=== PATIENT | female | born 1975 | race American Indian/Alaskan Native ===

== ENCOUNTER 2018-12-05 23:59 | Inpatient (IN) | payer OTHER ==
[2018-12-06] MEDS ORDERED: ASPIRIN PO ONE (00:14)
[2018-12-06 00:40] LABS: Basophils # (Auto) 0.1 K/mm3 (0.0-0.1); Basophils % (Auto) 0.8 % (0.0-1.8); Eosinophils # (Auto) 0.3 K/mm3 (0.0-0.4); Eosinophils % (Auto) 3.3 % (0.0-4.3); Hematocrit 37.1 % (30.3-42.9); Hemoglobin 13.1 gm/dl (10.1-14.3); Lymphocytes # (Auto) 4.4 K/mm3 (1.2-5.4); Lymphocytes % (Auto) 51.9 % (13.4-35.0); Mean Corpuscular HGB Conc 35 % (30-34); Mean Corpuscular Volume 87 fl (79-97); Monocytes # (Auto) 0.5 K/mm3 (0.0-0.8); Monocytes % (Auto) 6.1 % (0.0-7.3); Platelet Count 196 K/mm3 (140-440); Red Blood Count 4.26 M/mm3 (3.65-5.03); Red Cell Distribution Width 13.8 % (13.2-15.2)
--- NOTE | 2018-12-06 00:53 | XRay Report ---
PROCEDURE: XR CHEST 1V AP TECHNIQUE: Chest radiograph single view. HISTORY: Chest Pain COMPARISONS: None . FINDINGS: Heart: The heart is mildly enlarged.. Mediastinum/Vessels: Normal. Lungs/Pleural space: There are no localized infiltrates or effusions.. Bony thorax: No acute osseous abnormality. Life support devices: None. IMPRESSION: No acute cardiopulmonary abnormality. This document is electronically signed by Nas Warren MD., December 06 2018 12:52:17 AM ET
[2018-12-06 00:54] LABS: BUN/Creatinine Ratio 19; Blood Urea Nitrogen 15 mg/dL (7-17); Calcium 9.7 mg/dL (8.4-10.2); Hemolysis Index 12
[2018-12-06] MEDS ORDERED: K-DUR PO ONE (02:17)
[2018-12-06] MEDS ORDERED: NORCO 5/325 PO ONE (02:35)
[2018-12-06] MEDS ORDERED: ANTIVERT PO ONE (02:35)
[2018-12-06] MEDS ORDERED: ASPIRIN ONE (03:05)
--- NOTE | 2018-12-06 03:39 | Emergency Department Report ---
HPI - General Chief Complaint: Dizziness Time Seen by Provider: 12/06/18 02:15 - HPI HPI: 43-year-old -Cam[place] female presents to the emergency department from home, dropped off by her , with a complaint of some dizziness, generalized body aches and generalized weakness. The patient also complains of a headache that goes from the back of the head and down into the chest. This has been going on for the past few days. She has a past medical history of hypertension and high cholesterol. She denies any tobacco or illicit drug use. Patient did take her normal blood pressure medications as well as a tramadol that she had available but says that she did not get much relief. She also has some associated nausea without vomiting. The body aches feel like vibrations throughout her body. The dizziness feels like she may fall down or pass out. Patient recently was on a cruise to the [facility]. Her primary care physician is a Dr. Reardon. ED Past Medical Hx - Past Medical History Previous Medical History?: Yes Hx Hypertension: Yes Additional medical history: High cholestrol - Surgical History Past Surgical History?: No - Social History Smoking Status: Never Smoker Substance Use Type: Alcohol - Medications Home Medications: Home Medications Medication Instructions Recorded Confirmed Last Taken Type Lisinopril/Hydrochlorothiazide 1 tab PO QDAY 12/06/18 12/06/18 12/05/18 History [Zestoretic 20-12.5 mg] Simvastatin 20 mg PO HS 12/06/18 12/06/18 12/05/18 History traMADol [Ultram] 50 mg PO BID PRN 12/06/18 12/06/18 12/05/18 History ED Review of Systems ROS: Stated complaint: DIZZY W/HEADACHE Other details as noted in HPI Comment: All other systems reviewed and negative Constitutional: weakness. denies: fever Eyes: denies: eye pain, vision change ENT: denies: ear pain, throat pain Respiratory: denies: cough, shortness of breath Cardiovascular: denies: chest pain, palpitations Gastrointestinal: nausea. denies: abdominal pain, vomiting Genitourinary: denies: dysuria, discharge Musculoskeletal: myalgia. denies: joint swelling Skin: denies: rash, lesions Neurological: other (dizziness). denies: numbness, paresthesias Physical Exam - Physical Exam Vital Signs: Vital Signs 12/06/18 00:06 Temperature 97.6 F Pulse Rate 89 Respiratory 18 Rate Blood Pressure 194/126 O2 Sat by Pulse 100 Oximetry Physical Exam: GENERAL: The patient is well-developed well-nourished. HENT: Normocephalic. Atraumatic. Patient has moist mucous membranes. EYES: Extraocular motions are intact. Pupils equal reactive to light bilaterally. Fatigable horizontal nystagmus. NECK: Supple. Trachea is midline. CHEST/LUNGS: Clear to auscultation. There is no respiratory distress noted. HEART/CARDIOVASCULAR: Regular. There is no tachycardia. There is no murmur. ABDOMEN: Abdomen is soft, nontender. Patient has normal bowel sounds. There is no abdominal distention. SKIN: Skin is warm and dry. NEURO: The patient is awake, alert, and oriented. The patient is cooperative. The patient has no focal neurologic deficits. The patient has normal speech. Cranial nerves II through XII grossly intact. No pronator drift. No dysmetria. No facial asymmetry. MUSCULOSKELETAL: There is no tenderness or deformity. There is no limitation range of motion. There is no evidence of acute injury. ED Course Vital Signs 12/06/18 00:06 Temperature 97.6 F Pulse Rate 89 Respiratory 18 Rate Blood Pressure 194/126 O2 Sat by Pulse 100 Oximetry ED Medical Decision Making - Lab Data Result diagrams: 12/06/18 00:22 12/06/18 00:22 - EKG Data -: EKG Interpreted by Ak EKG shows normal: sinus rhythm (PVCs), axis, intervals (prolonged FL interval), QRS complexes (LVH), ST-T waves Rate: normal - EKG Data When compared to previous EKG there are: previous EKG unavailable Interpretation: other (sinus rhythm with PVCs, mildly prolonged FL interval, LVH) - Radiology Data Radiology results: report reviewed, image reviewed interpreted by me: Chest x-ray does not show any acute process. There are no pleural effusions, obvious pneumonia and there is no pneumothorax. PROCEDURE: CT HEAD/BRAIN WO CON TECHNIQUE: Computerized tomography of the head was performed without contrast material. CT DOSE LENGTH PRODUCT: 920.5 mGycm HISTORY: dizziness, headache COMPARISONS: None . FINDINGS: Skull and scalp: Normal . Paranasal sinuses: Normal . Ventricles and subarachnoid spaces: Normal . Cerebrum: No evidence of hemorrhage, acute infarction or mass . Cerebellum and brainstem: No evidence of hemorrhage, acute infarction or mass . Vasculature: Normal . Other: None . ASPECTS: 10 IMPRESSION: Within normal limits. . This document is electronically signed by Nas Warren MD., December 06 2018 06:08:29 AM ET Transcribed By: SHAMAR Dictated By: NAS WARREN MD Electronically Authenticated By: NAS WARREN MD Signed Date/Time: 12/06/18 0610 PROCEDURE: CT ANGIO CHEST TECHNIQUE: Computerized tomographic angiography of the chest was performed after the IV injection of iodinated nonionic contrast including image processing. The image data was postprocessed using 2-dimensional multiplanar reformatted (MPR) and 3-dimensional (MIP and/or volume rendered) techniques. Automated exposure control, adjustment of mA and/or kV according to patient size, or iterative reconstruction dose optimization techniques were utilized. CT DOSE LENGTH PRODUCT: 684.7 mGycm HISTORY: CP, elevated dimer COMPARISONS: Chest x-ray 12/06/2018 . FINDINGS: Heart and pericardium: The heart is mildly enlarged. There is no evidence of pericardial effusion.. Thoracic aorta: Normal. Pulmonary vasculature: Normal. Lymph nodes: No enlarged thoracic lymph nodes. Lungs: The lungs reveal very mild interstitial prominence in the bases. There are no localized infiltrates.. Pleural space: No effusion, thickening, or pneumothorax. Musculoskeletal structures: No significant abnormality. Upper abdominal structures: No significant abnormality. IMPRESSION: No evidence of pulmonary embolus, aortic dissection, or vascular congestion. Nonspecific mild initial prominence in the lower lobes. No acute infiltrates or effusions. This document is electronically signed by Nas Warren MD., December 06 2018 06:18:34 AM ET Transcribed By: SHAMAR Dictated By: NAS WARREN MD Electronically Authenticated By: NAS WARREN MD Signed Date/Time: 12/06/18 0620 - Medical Decision Making This patient presents to the emergency department with a complaint of a headache, some chest discomfort, and some dizziness/vertigo. It is a mixture of feeling like she is going to pass out, along with the room spinning. On examination she does not appear to have any motor, focal or sensory deficits in her cranial nerves are intact. She does have some fatigable horizontal nystagmus. She was given some Antivert and a dose of pain medication. Chest x- ray did not show any acute process. CT scan of the head without contrast did not show any bleed, shift, mass, ischemia, or any other acute process. CT angiography of the chest did not show any signs of any pulmonary embolism, dissection, aneurysm, or any other acute process. Patient's labs showed a slightly elevated d-dimer, mild hypokalemia but otherwise she had negative troponins 2 thus far and normal thyroid function. The patient attempted to ambulate the patient but she continues to feel dizzy and have vertigo and does not feel stable ambulating. As the patient just had a CT angiography of the chest, we may not be able to obtain CT angiography of the head and neck to rule out something like a posterior circulation stroke. For all these reasons, the patient will be admitted to the hospital for further evaluation and treatment. This admission was discussed with the overnight hospitalist who will pass along to the morning hospitalist team. - Differential Diagnosis benign positional vertigo, posterior circulation stroke, PE, DE Critical Care Time: No Critical care attestation.: If time is entered above; I have spent that time in minutes in the direct care of this critically ill patient, excluding procedure time. ED Disposition Clinical Impression: Acute chest pain, Vertigo, Dizziness, Hypokalemia Hypertension Qualifiers: Hypertension type: essential hypertension Qualified Code(s): I10 - Essential (primary) hypertension Disposition: OP ADMIT IP TO THIS HOSP Is pt being admited?: Yes Condition: Fair Time of Disposition: 06:36
--- NOTE | 2018-12-06 06:10 | Cat Scan Report ---
PROCEDURE: CT HEAD/BRAIN WO CON TECHNIQUE: Computerized tomography of the head was performed without contrast material. CT DOSE LENGTH PRODUCT: 920.5 mGycm HISTORY: dizziness, headache COMPARISONS: None . FINDINGS: Skull and scalp: Normal . Paranasal sinuses: Normal . Ventricles and subarachnoid spaces: Normal . Cerebrum: No evidence of hemorrhage, acute infarction or mass . Cerebellum and brainstem: No evidence of hemorrhage, acute infarction or mass . Vasculature: Normal . Other: None . ASPECTS: 10 IMPRESSION: Within normal limits. . This document is electronically signed by Nas Warren MD., December 06 2018 06:08:29 AM ET
--- NOTE | 2018-12-06 06:20 | Cat Scan Report ---
PROCEDURE: CT ANGIO CHEST TECHNIQUE: Computerized tomographic angiography of the chest was performed after the IV injection of iodinated nonionic contrast including image processing. The image data was postprocessed using 2-di mensional multiplanar reformatted (MPR) and 3-dimensional (MIP and/or volume rendered) techniques. Au tomated exposure control, adjustment of mA and/or kV according to patient size, or iterative reconstr uction dose optimization techniques were utilized. CT DOSE LENGTH PRODUCT: 684.7 mGycm HISTORY: CP, elevated dimer COMPARISONS: Chest x-ray 12/06/2018 . FINDINGS: Heart and pericardium: The heart is mildly enlarged. There is no evidence of pericardial effusion.. Thoracic aorta: Normal. Pulmonary vasculature: Normal. Lymph nodes: No enlarged thoracic lymph nodes. Lungs: The lungs reveal very mild interstitial prominence in the bases. There are no localized infil trates.. Pleural space: No effusion, thickening, or pneumothorax. Musculoskeletal structures: No significant abnormality. Upper abdominal structures: No significant abnormality. IMPRESSION: No evidence of pulmonary embolus, aortic dissection, or vascular congestion. Nonspecific mild initial prominence in the lower lobes. No acute infiltrates or effusions. This document is electronically signed by Nas Warren MD., December 06 2018 06:18:34 AM ET
--- NOTE | 2018-12-06 08:13 | History and Physical Report ---
History of Present Illness Date of examination: 12/06/18 Date of admission: 12/06/18 Chief complaint: Dizziness History of present illness: 43-year-old -[place]enegr[place] female with h/o HTN and HLD presents to the emergency department from home, dropped off by her , with a complaint of some dizziness, generalized body aches and generalized weakness along with a headache with some associated nausea without vomiting. Patient states that she recently came from a cruise trip to [place] and no other family members are sick at this point. She describes her headcahe that goes from the back of the head and down into the chest. This has been going on for the past few days. She denies any tobacco or illicit drug use. Patient did take her normal blood pressure medications as well as a tramadol that she had available but says that she did not get much relief. The body aches feel like vibrations throughout her body. The dizziness feels like she may fall down or pass out and happens with changing position. Her primary care physician is a Dr. Reardon. Her CTA chest showed no PE, CT head unremarkable. Pt also reports some intermittent chest pain for the past several months. She describes the pain as a midsternal burning which occurs intermittently and which is usually resolved by drinking cold water. She denies any SOB, palpitations, diaphoresis or syncope. Pt denies any known cardiac issues or prior cardiac w/u. 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 She is getting admitted for further evaluation and management. Review of System: Constitutional: no fever, no chills, no weight loss Ears, eyes, nose, mouth and throat: no nasal congestion, no nasal discharge, no sinus pressure, no vision change, no red eye. Neck: No neck pain or rigidity. Cardiovascular: + intermittent chest pain, no orthopnea, no palpitations, no leg swelling Respiratory: No shortness of breath, no cough, no congestion, no wheezing Gastrointestinal: no abdominal pain, no nausea, no vomiting Genitourinary : no dysuria, no hematuria Musculoskeletal: no joint swelling or muscle ache Integumentary: no rash, no pruritis Neurological: no parathesias, no numbness, no tingling. + dizziness Endocrine: no cold or heat intolerance, no polyuria or polydipsia Hematologic/Lymphatic: no easy bruising, no easy bleeding, no gland swelling Allergic/Immunologic: no urticaria, no angioedema. Past History Past Medical History: hypertension, hyperlipidemia Past Surgical History: No surgical history Social history: no significant social history. denies: smoking, alcohol abuse, IV drug use Family history: CAD (in mother), diabetes (in mother) Medications and Allergies Allergies Allergy/AdvReac Type Severity Reaction Status Date / Time No Known Allergies Allergy Verified 12/06/18 00:12 Home Medications Medication Instructions Recorded Confirmed Last Taken Type Lisinopril/Hydrochlorothiazide 1 tab PO QDAY 12/06/18 12/06/18 12/05/18 History [Zestoretic 20-12.5 mg] Simvastatin 20 mg PO HS 12/06/18 12/06/18 12/05/18 History traMADol [Ultram] 50 mg PO BID PRN 12/06/18 12/06/18 12/05/18 History Exam - Physical Exam Narrative exam: GENERAL: well-developed and obese AAF lying on bed appeared to be in no discomfort. HEENT: Normocephalic. Atraumatic. No conjunctival congestion or icterus. Patient has moist mucous membranes. NECK: Supple. Trachea midline. CHEST/LUNGS: Clear to auscultated bilaterally, breathing nonlabored. No wheezes crackles or rhonchi. HEART/CARDIOVASCULAR: Regular in rate and rhythm. S1 and S2 positive. ABDOMEN: Abdomen is soft, nontender. Patient has normal bowel sounds. SKIN: There is no rash. Warm and dry. NEURO: No focal motor deficit. Follows command. MUSCULOSKELETAL: No joint effusion or tenderness. EXTRIMITY: No edema, no cyanosis or clubbing. PSYCH: Cooperative. - Constitutional Vitals: Temp Pulse Resp BP Pulse Ox 98.1 F 83 16 142/84 100 12/06/18 02:11 12/06/18 04:45 12/06/18 04:45 12/06/18 06:01 12/06/18 06:01 Results - Labs CBC & Chem 7: 12/06/18 00:22 12/08/18 09:57 Labs: Abnormal lab results 12/06/18 12/06/18 12/06/18 Range/Units 00:22 00:22 02:53 MCHC 35 H (30-34) % Lymph % (Auto) 51.9 H (13.4-35.0) % Seg Neutrophils % 37.9 L (40.0-70.0) % D-Dimer 314.64 H (0-234) ng/mlDDU Potassium 3.2 L (3.6-5.0) mmol/L Glucose 107 H (65-100) mg/dL Assessment and Plan Dizziness vs vertigo/BPV headache, possible migraine Atypical chest pain, likely GERD HTN, uncontrolled Obesity, due to access calorie hypokalemia - admit to [facility] with remote tele, obtain 2d echo - obtain MRA/MRV for possible cerebral venous thrombosis, neuro consult - replete K, resume home meds for HTN, as needed hydralazine - Dvt Px, PPI for GI Px, cardiac diet
[2018-12-06] MEDS ORDERED: APRESOLINE IV PRN (08:14)
[2018-12-06] MEDS ORDERED: TYLENOL PO PRN (08:14)
[2018-12-06] MEDS ORDERED: ZOFRAN IV PRN (08:14)
[2018-12-06] MEDS ORDERED: ANTIVERT PO PRN (08:15)
[2018-12-06] MEDS ORDERED: FIORICET PO PRN (08:15)
[2018-12-06] MEDS: PEPCID PO SCH ×2 (09:32→21:28)
[2018-12-06] MEDS: COLACE PO SCH ×2 (10:29→21:28)
[2018-12-06 12:46] LABS: Amphetamine Screen,Urine PRESUMPTIVE NEGATIVE; Benzodiazepines Screen,Urine PRESUMPTIVE NEGATIVE; Cannabinoid Screen,Urine PRESUMPTIVE NEGATIVE; Cocaine Screen,Urine PRESUMPTIVE NEGATIVE; Methadone Screen,Urine PRESUMPTIVE NEGATIVE; Opiate Screen,Urine PRESUMPTIVE NEGATIVE
[2018-12-06] MEDS ORDERED: ANTIVERT ONE (17:10)
[2018-12-06] MEDS: PRAVACHOL PO SCH (21:28)
[2018-12-06] MEDS ORDERED: NON-FORMULARY (Simvastatin [Simvastatin] 20 MG) PO SCH (22:00)
[2018-12-07] MEDS ORDERED: NON-FORMULARY (Lisinopril/Hydrochlorothiazide [Zestoretic 20-12.5 Mg] 1 TAB) PO SCH (10:00)
[2018-12-07] MEDS ORDERED: HCTZ PO SCH (10:00)
[2018-12-07] MEDS: ZESTRIL PO SCH (13:29)
[2018-12-07] MEDS: PEPCID PO SCH ×2 (13:29→22:25)
[2018-12-07] MEDS: COLACE PO SCH ×2 (13:30→22:25)
--- NOTE | 2018-12-07 13:37 | Consultation ---
History of Present Illness Consult date: 12/07/18 Requesting physician: CONNER LOVE Consult reason: other (dizziness) History of present illness: The pt is a 43-year-old -[place] female with a past medical history of HTN and HLP. She is previously unknown to our practice. She presented with c/o dizziness, headache, generalized body aches and generalized weakness for the past few days. She also has some associated nausea without vomiting. The body aches feel like vibrations throughout her body. The dizziness feels like she may fall down or pass out. Patient recently was on a cruise to the [facility]. Her primary care physician is a Dr. Reardon. Pt also reports some intermittent chest pain for the past several months. She describes the pain as a midsternal burning which occurs intermittently and which is usually resolved by drinking cold water. She denies any SOB, palpitations, diaphoresis or syncope. Pt denies any known cardiac issues or prior cardiac w/u. 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 Past History Past Medical History: hypertension, hyperlipidemia Medications and Allergies Allergies Allergy/AdvReac Type Severity Reaction Status Date / Time No Known Allergies Allergy Verified 12/06/18 00:12 Home Medications Medication Instructions Recorded Confirmed Last Taken Type Lisinopril/Hydrochlorothiazide 1 tab PO QDAY 12/06/18 12/06/18 12/05/18 History [Zestoretic 20-12.5 mg] Simvastatin 20 mg PO HS 12/06/18 12/06/18 12/05/18 History traMADol [Ultram] 50 mg PO BID PRN 12/06/18 12/06/18 12/05/18 History Active Meds: Active Medications Acetaminophen (Tylenol) 650 mg PO Q4H PRN PRN Reason: Pain MILD(1-3)/Fever >100.5/SANDHU Acetaminophen/Butalbital/Caffeine (Fioricet) 1 tab PO Q8H PRN PRN Reason: Headache Docusate Sodium (Colace) 100 mg PO BID [facility] Last Admin: 12/07/18 13:30 Dose: 100 mg Documented by: Enoxaparin Sodium (Lovenox) 40 mg SUB-Q QDAY@2200 NITESH Famotidine (Pepcid) 10 mg PO BID [facility] Last Admin: 12/07/18 13:29 Dose: 10 mg Documented by: Hydralazine HCl (Apresoline) 5 mg IV Q30MIN PRN PRN Reason: Hypertension Hydrochlorothiazide (Hctz) 12.5 mg PO QDAY [facility] Last Admin: 12/07/18 13:30 Dose: 12.5 mg Documented by: Lisinopril (Zestril) 10 mg PO QDAY [facility] Last Admin: 12/07/18 13:29 Dose: 10 mg Documented by: Meclizine HCl (Antivert) 25 mg PO Q8H PRN PRN Reason: Vertigo Ondansetron HCl (Zofran) 4 mg IV Q8H PRN PRN Reason: N/V unrelieved by Reglan Pravastatin Sodium (Pravachol) 40 mg PO QHS [facility] Last Admin: 12/06/18 21:28 Dose: 40 mg Documented by: Review of Systems Constitutional: no weight loss, no weight gain, no fever, no chills, no sweats Ears, nose, mouth and throat: no ear pain, no nose pain, no sinus pressure, no sinus pain Cardiovascular: chest pain, lightheadedness, high blood pressure, no orthopnea, no palpitations, no rapid/irregular heart beat, no edema, no syncope, no shortness of breath, no dyspnea on exertion, no leg edema Respiratory: no cough, no shortness of breath, no dyspnea on exertion, no congestion, no wheezing, no pain on inspiration Gastrointestinal: no abdominal pain, no nausea, no vomiting, no diarrhea, no constipation, no change in bowel habits Genitourinary Female: no pelvic pain, no flank pain, no dysuria, no urinary frequency, no urgency Musculoskeletal: no shooting arm pain, no arm numbness/tingling, no low back pain, no shooting leg pain Integumentary: no rash, no pruritis, no redness, no sores, no wounds Neurological: headaches, other (dizziness), no head injury, no paralysis, no weakness, no parathesias, no numbness, no tingling, no seizures, no syncope Psychiatric: no anxiety Endocrine: no cold intolerance, no heat intolerance Hematologic/Lymphatic: no easy bruising, no easy bleeding Allergic/Immunologic: no urticaria, no wheezing Physical Examination Vital Signs Temp Pulse Resp BP Pulse Ox 97.6 F 89 18 194/126 100 12/06/18 00:06 12/06/18 00:06 12/06/18 00:06 12/06/18 00:06 12/06/18 00:06 General appearance: no acute distress HEENT: Positive: PERRL, Normocephaly, Mucus Membranes Moist Neck: Positive: neck supple, trachea midline Cardiac: Positive: Reg Rate and Rhythm, S1/S2 Lungs: Positive: Decreased Breath Sounds Neuro: Positive: Grossly Intact Abdomen: Positive: Soft. Negative: Tender Skin: Negative: Rash Musculoskeletal: No Pain Extremities: Absent: edema Results 12/06/18 00:22 12/06/18 00:22 - Imaging and Cardiology Echo: pending EKG: report reviewed, image reviewed EKG interpretations - Telemetry EKG Rhythm: Sinus Rhythm - EKG Sinus rhythms and dysrhythmias: sinus rhythm Chamber hypertrophy or enlargement: left ventricular hypertro Assessment and Plan DDimer minimally elevated - chest CTA negative for PE. Head CT WNL. AMI ruled out. Await echo. Agree with remote telemetry. Optimize BPs. Can consider stress test once BPs are optimized. The patient has been seen in conjunction with Dr. Caballero who agrees with the assessment and plan of care. - Patient Problems (1) Dizziness Current Visit: Yes Status: Acute (2) Headache Current Visit: Yes Status: Acute (3) Chest pain Current Visit: Yes Status: Acute (4) Accelerated hypertension Current Visit: Yes Status: Acute (5) Hyperlipemia Current Visit: Yes Status: Chronic
--- NOTE | 2018-12-07 14:40 | Magnetic Resonance Report ---
MRA HEAD WITHOUT CONTRAST: 12/07/18 10:28:00 CLINICAL: Headache. TECHNIQUE: Axial 3-D [id number] MR angiography of the [place] with review of axial source images. FINDINGS: Intact [place] with no aneurysm, stenosis or occlusion. The right A1 segment is hypoplastic which is a normal variant. Symmetric blood flow in the anterior, middle and posterior cerebral arteries. The anterior and posterior communicating arteries are patent. The ICAs are intact. Normal basilar and vertebral arteries. IMPRESSION: Normal study.
--- NOTE | 2018-12-07 14:57 | Magnetic Resonance Report ---
MRA NECK WITHOUT CONTRAST: 12/07/18 10:47:00 CLINICAL: Headache. COMPARISON:None. TECHNIQUE: Axial 3-D [id number] MR angiography with review of axial source images on a 1.5 Zainab magnet. FINDINGS: The bilateral common and internal carotid arteries are intact. Bilateral vertebral arteries are intact. No stenoses or occlusions. IMPRESSION: Normal study.
--- NOTE | 2018-12-07 15:19 | Progress Note ---
Assessment and Plan Dizziness vs vertigo/BPV - CT head unremarkable, pending 2d echo - Ordered MRA/MRV for possible Cerebral venous thrombosis - MRV was not ob tained, MRA normal, - Neuro consulted and placed on meclizine, - also given a dose of decadron, - ordered PT for [place]-Hallpike maneuver - also consulted cardiology for further recommendation Headache, possible migraine - ordered Depacon for migraine and magnesium sulfate x1 dose . Atypical chest pain, likely GERD - cont protonix, follow 2d echo - cardiology consulted HTN, uncontrolled - now on lisinopril, and added BB Obesity, due to access calorie, dietary and exercise recommendation on discharge hypokalemia, replete, stopped Hctz - Dvt Px, PPI for GI Px, cardiac diet Subjective Date of service: 12/07/18 Interval history: Patient seen and examined Continue to c/o Dizziness and vertigo MRA done - no acute findings 2d echo pending, denies chest pain, tolerating diet Objective - Exam Narrative Exam: GENERAL: well-developed and obese AAF lying on bed appeared to be in no discomfort. HEENT: Normocephalic. Atraumatic. No conjunctival congestion or icterus. Patient has moist mucous membranes. NECK: Supple. Trachea midline. CHEST/LUNGS: Clear to auscultated bilaterally, breathing nonlabored. No wheezes crackles or rhonchi. HEART/CARDIOVASCULAR: Regular in rate and rhythm. S1 and S2 positive. ABDOMEN: Abdomen is soft, nontender. Patient has normal bowel sounds. SKIN: There is no rash. Warm and dry. NEURO: No focal motor deficit. Follows command. MUSCULOSKELETAL: No joint effusion or tenderness. EXTRIMITY: No edema, no cyanosis or clubbing. PSYCH: Cooperative. - Constitutional Vitals: Vital Signs - 12hr 12/07/18 12/07/18 12/07/18 05:53 05:54 05:55 Temperature 98.2 F Pulse Rate 88 80 75 Respiratory 20 20 Rate Blood Pressure 143/87 140/92 138/97 O2 Sat by Pulse 100 100 100 Oximetry 12/07/18 13:29 Temperature Pulse Rate 82 Respiratory Rate Blood Pressure 151/101 O2 Sat by Pulse Oximetry - Labs CBC & Chem 7: 12/06/18 00:22 12/08/18 09:57
[2018-12-07] MEDS ORDERED: DECADRON IV ONE (16:45)
[2018-12-07] MEDS ORDERED: APRESOLINE IV STA (16:47)
[2018-12-07] MEDS ORDERED: DepaCON 1,000 MG in NACL 0.9% 100 ML IV ONE (17:30)
[2018-12-07] MEDS ORDERED: MAGNESIUM SULFATE 2GM/50ML 2 GM/50 ML BAG IV ONE (17:30)
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
[2018-12-07] MEDS: PRAVACHOL PO SCH (22:25)
[2018-12-07] MEDS: LOPRESSOR PO SCH (22:27)
[2018-12-07] MEDS: LOVENOX SUB-Q SCH (22:27)
[2018-12-08] MEDS: ANTIVERT PO SCH ×2 (11:22→22:31)
[2018-12-08] MEDS: LOPRESSOR PO SCH ×2 (11:23→22:31)
[2018-12-08] MEDS: BABY ASPIRIN PO SCH (11:23)
[2018-12-08] MEDS: ZESTRIL PO SCH (11:23)
[2018-12-08] MEDS: PEPCID PO SCH ×2 (11:24→22:31)
[2018-12-08] MEDS: COLACE PO SCH ×2 (11:24→22:30)
[2018-12-08 11:43] LABS: BUN/Creatinine Ratio 24; Blood Urea Nitrogen 19 mg/dL (7-17); Calcium 9.5 mg/dL (8.4-10.2); Hemolysis Index 5
--- NOTE | 2018-12-08 15:21 | Progress Note ---
Assessment and Plan Dizziness vs vertigo/BPV - CT head unremarkable, 2d echo showed Ef 40-45% - Ordered MRA/MRV for possible Cerebral venous thrombosis - MRV was not obtained, MRA normal, - reordered MRV today along with MRI brain due to her persisted complaints - Neuro consulted and placed on meclizine as needed - make with scheduled today , - also given a dose of decadron, - ordered PT for [place]-Hallpike maneuver - pending New diagnosis of CHFrEF 40-45%, compensated, - cardiology following, cont aspirin, statin and BB - possible cardiac workup outpt when she is neurologically more stable Headache, possible migraine - s/p magnesium sulfate x1 dose - ordered Depacon for migraine Atypical chest pain, likely GERD - cont protonix, 2d echo showed systolic dysfunction - cardiology consulted, may need stress HTN, uncontrolled - now on lisinopril, and added BB Obesity, due to access calorie, dietary and exercise recommendation on discharge hypokalemia, replete, stopped Hctz - Dvt Px, PPI for GI Px, cardiac diet Subjective Date of service: 12/08/18 Interval history: Patient seen and examined Continue to c/o Dizziness and vertigo, states unable to get out from bed MRV pending - no acute findings denies chest pain, tolerating diet Objective - Exam Narrative Exam: GENERAL: well-developed and obese AAF lying on bed appeared to be in no discomfort. HEENT: Normocephalic. Atraumatic. No conjunctival congestion or icterus. Patient has moist mucous membranes. NECK: Supple. Trachea midline. CHEST/LUNGS: Clear to auscultated bilaterally, breathing nonlabored. No wheezes crackles or rhonchi. HEART/CARDIOVASCULAR: Regular in rate and rhythm. S1 and S2 positive. ABDOMEN: Abdomen is soft, nontender. Patient has normal bowel sounds. SKIN: There is no rash. Warm and dry. NEURO: No focal motor deficit. Follows command. MUSCULOSKELETAL: No joint effusion or tenderness. EXTRIMITY: No edema, no cyanosis or clubbing. PSYCH: Cooperative. - Constitutional Vitals: Vital Signs - 12hr 12/08/18 12/08/18 12/08/18 05:20 08:00 09:48 Temperature 98.2 F 97.8 F Pulse Rate 96 H 90 Respiratory 18 18 20 Rate Blood Pressure 125/69 141/86 Blood Pressure [Left] O2 Sat by Pulse 97 100 Oximetry 12/08/18 12/08/18 09:50 09:57 Temperature 97.8 F Pulse Rate 98 H 93 H Respiratory 20 Rate Blood Pressure 144/98 Blood Pressure 135/94 [Left] O2 Sat by Pulse 100 99 Oximetry - Labs CBC & Chem 7: 12/06/18 00:22 12/08/18 09:57 Labs: Abnormal lab results 12/08/18 Range/Units 09:57 Carbon Dioxide 19 L (22-30) mmol/L BUN 19 H (7-17) mg/dL Glucose 171 H (65-100) mg/dL
[2018-12-08] MEDS ORDERED: PROVENTIL IH ONE (15:41)
--- NOTE | 2018-12-08 15:44 | Progress Note ---
Assessment and Plan The patient has been seen in conjunction with Dr. Mckeon who agrees with the assessment and plan of care. - Patient Problems (1) Dizziness Current Visit: Yes Status: Acute (2) Headache Current Visit: Yes Status: Acute (3) Chest pain Current Visit: Yes Status: Acute (4) Accelerated hypertension Current Visit: Yes Status: Acute (5) Hyperlipemia Current Visit: Yes Status: Chronic Subjective Date of service: 12/08/18 Principal diagnosis: dizziness; headache Objective Vital Signs Temp Pulse Pulse Resp BP BP Pulse Ox 12/08/18 09:57 97.8 F 93 H 135/94 99 12/08/18 09:50 98 H 20 144/98 100 12/08/18 09:48 97.8 F 90 20 141/86 100 12/08/18 08:00 18 12/08/18 05:20 98.2 F 96 H 18 125/69 97 12/07/18 23:41 98.6 F 98 H 20 142/92 97 12/07/18 22:27 98 H 142/119 12/07/18 20:00 98 H 20 97 12/07/18 18:38 93 H 130/82 12/07/18 17:01 97.7 F 93 H 20 130/82 97 - Physical Examination HEENT: Positive: PERRL, Normocephaly, Mucus Membranes Moist Neck: Positive: neck supple, trachea midline Neuro: Positive: Grossly Intact Abdomen: Positive: Soft. Negative: Tender Skin: Negative: Rash Musculoskeletal: No Pain Extremities: Absent: edema - Labs and Meds Comprehensive Metabolic Panel 12/08/18 Range/Units 09:57 Sodium 143 (137-145) mmol/L Potassium 3.8 (3.6-5.0) mmol/L Chloride 105.8 (98-107) mmol/L Carbon Dioxide 19 L (22-30) mmol/L BUN 19 H (7-17) mg/dL Creatinine 0.8 (0.7-1.2) mg/dL Glucose 171 H (65-100) mg/dL Calcium 9.5 (8.4-10.2) mg/dL - Imaging and Cardiology EKG: report reviewed, image reviewed Echo: pending - EKG Sinus rhythms and dysrhythmias: sinus rhythm Chamber hypertrophy or enlargement: left ventricular hypertro
--- NOTE | 2018-12-08 19:57 | Magnetic Resonance Report ---
PROCEDURE: MR BRAIN WO/W CON TECHNIQUE: Magnetic resonance imaging of the brain was performed before and after the IV injection o f paramagnetic contrast. HISTORY: headache/dizziness COMPARISONS: CT scan of the brain 12/06/2018 . FINDINGS: MRI of the brain was performed using sagittal T1, axial diffusion, axial T2, axial T2*gradient echo, axial T1, coronal FLAIR and axial and coronal postcontrast T1-weighted images. Additionally, thin sec tion imaging was performed through the internal auditory canals using coronal T2*gradient echo images and axial and coronal thin section precontrast and postcontrast T1-weighted images. Comparison is ma de to CT examination of December 06. These images demonstrate that there is a complete corpus callosum. There is no Chiari malformation. Diffusion-weighted images demonstrate no acute transcortical or acute lacunar infarct. There are scattered foci of increased FLAIR signal in the subcortical white matter, likely chronic sm all vessel ischemic change. Largest such focus is in the right anterior parietal white matter, FLAIR image 8 approximately 0.8 cm. There are normal flow voids in the vertebral arteries, basilar artery and both internal carotid arter ies. There is partial opacification of the right mastoid air cells. The left mastoid air cells appear troy r. There is no evidence of acute sinusitis. Images obtained through the internal auditory canals demonstrate that the 7th and 8th nerves appear u nremarkable bilaterally. No mass is seen of the internal auditory canals or cerebellopontine angles. IMPRESSION: No acute transcortical or acute lacunar infarct Chronic-appearing small vessel ischemic changes in subcortical and periventricular white matter This document is electronically signed by Krystian Yarbrough MD., December 08 2018 07:55:45 PM ET
--- NOTE | 2018-12-08 20:09 | Magnetic Resonance Report ---
PROCEDURE: MR MRA/MRV HEAD WO/W CON HISTORY: headache/dizziness FINDINGS: MRV of the brain was performed using [id number] venography and data was reformatted in multiple projections. These images demonstrate that the superior sagittal sinus, straight sinus and transverse sinuses are all patent. The left transverse sinuses somewhat small likely on a developmental basis. IMPRESSION: The intracranial veins appear patent This document is electronically signed by Krystian Yarbrough MD., December 08 2018 08:08:01 PM ET
[2018-12-08] MEDS: PRAVACHOL PO SCH (22:31)
[2018-12-08] MEDS: LOVENOX SUB-Q SCH (22:32)
[2018-12-08] MEDS ORDERED: MELATONIN PO PRN (23:53)
[2018-12-09] MEDS: ANTIVERT PO SCH ×2 (06:21→10:40)
[2018-12-09] MEDS ORDERED: ZESTRIL PO SCH ×2 (09:43→10:00)
[2018-12-09] MEDS ORDERED: LOPRESSOR PO SCH ×2 (09:43→10:00)
[2018-12-09] MEDS: COLACE PO SCH (10:17)
[2018-12-09] MEDS: BABY ASPIRIN PO SCH (10:17)
[2018-12-09] MEDS: PEPCID PO SCH (10:18)
--- NOTE | 2018-12-09 10:44 | Discharge Summary ---
Providers - Providers Date of Admission: 12/07/18 10:28 Date of discharge: 12/09/18 Attending physician: CONNER LOVE 12/06/18 14:52 Consult to Physician [CONS] Routine Comment: Consulting Provider: JT CARDENAS Physician Instructions: Reason For Exam: dizziness with headache 12/07/18 11:19 Consult to Physician [CONS] Routine Comment: Consulting Provider: CHANG MIRZA Physician Instructions: Reason For Exam: dizziness 12/07/18 16:51 Physical Therapy Evaluation and Treat [CONS] Urgent Comment: maneuvers if pos, or vestib exercises Reason For Exam: vertigo, do [place]-Hallpike & horiz canal testing Mode of Transport?: Wheelchair Weight bearing status?: Full wt bearing Assistive devices?: No Referring MD: JT CARDENAS Primary care physician: ANGEL MENDOZA Hospitalization Condition: Fair Pertinent studies: CT head MRI/MRA/MRV 2d echo CXR CTA chest Hospital course: The pt is a 43-year-old -Domin[place] female with a past medical history of HTN and HLP presented with c/o dizziness, headache, generalized body aches and generalized weakness for the past few days with associated nausea without vomiting. Symptom started after she was in a cruise doing scuba driving. Pt also reported some intermittent chest pain for the past several months. She described the pain as a midsternal burning which occurs intermittently and which is usually resolved by drinking cold water. 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 Patient was evaluated in the ER and admitted for further evaluation and management. Discharge diagnosis and management: Dizziness vs vertigo due to BPPV - CT head unremarkable, 2d echo showed Ef 40-45% - Ordered MRA/MRV/MRI brain - normal, no cerebral venous thrombosis - Neuro consulted and placed on meclizine - s/p a dose of decadron, - ordered PT for [place]-Hallpike maneuver - will f/u PT outpt New diagnosis of CHFrEF 40-45%, compensated, incidental finding - cardiology following, cont aspirin, statin and BB - possible cardiac workup outpt when she is neurologically more stable Headache, possible migraine - s/p magnesium sulfate x1 dose - ordered Depacon for migraine Atypical chest pain, likely GERD - cont protonix, 2d echo showed systolic dysfunction - cardiology consulted, may need stress test outpt when vertigo resolves HTN, uncontrolled - cont on lisinopril, and BB Obesity, due to access calorie, dietary and exercise recommendation as appropriate on discharge hypokalemia, repleted, stopped Hctz - Dvt Px, PPI for GI Px, cardiac diet Disposition: DC-01 TO HOME OR SELFCARE Time spent for discharge: 34 minutes Core Measure Documentation - Palliative Care Palliative Care/ Comfort Measures: Not Applicable - Core Measures Any of the following diagnoses?: none Exam - Physical Exam Narrative exam: GENERAL: well-developed and obese AAF lying on bed appeared to be in no discomfort. HEENT: Normocephalic. Atraumatic. No conjunctival congestion or icterus. Patient has moist mucous membranes. NECK: Supple. Trachea midline. CHEST/LUNGS: Clear to auscultated bilaterally, breathing nonlabored. No wheezes crackles or rhonchi. HEART/CARDIOVASCULAR: Regular in rate and rhythm. S1 and S2 positive. ABDOMEN: Abdomen is soft, nontender. Patient has normal bowel sounds. SKIN: There is no rash. Warm and dry. NEURO: No focal motor deficit. Follows command. MUSCULOSKELETAL: No joint effusion or tenderness. EXTRIMITY: No edema, no cyanosis or clubbing. PSYCH: Cooperative. - Constitutional Vitals: Temp Pulse Resp BP Pulse Ox 97.8 F 80 20 150/88 98 12/08/18 17:36 12/09/18 10:18 12/08/18 22:29 12/09/18 10:18 12/08/18 17:36 Plan Activity: fall precautions Weight Bearing Status: Weight Bear as Tolerated Diet: low fat, low salt Additional Instructions: Outpt ENT f/u in a week. Vestibular testing and outpatient treatment, Tejinder Madden. Patient to follow up with Dr. Caballero within 1-2 weeks of hospital discharge ([phone]). [facility] AMY [Referring] - 3-5 Days Forms: Accompanied Note, Work/School Release Form Prescriptions: Meclizine [Antivert] 25 mg PO Q8HR #14 tablet Aspirin [Aspirin BABY CHEW TAB] 81 mg PO QDAY #30 tab.chew Butalb/Acetamin/Caff 50-325-40 [Fioricet 50-325-40] 1 tab PO Q8H PRN #10 tablet PRN Reason: Headache Metoprolol [Lopressor TAB] 50 mg PO BID #60 tablet Lisinopril [Zestril TAB] 20 mg PO QDAY #30 tablet Other Discharge Orders: Physicial Therapy (Amb) Location: None Selected
--- NOTE | 2018-12-09 11:24 | Progress Note ---
Assessment and Plan Dimer minimally elevated - chest CTA negative for PE. Head CT WNL. Brain MRI with NAF. AMI ruled out, chest pain resolved. Echo reviewed - EF 40-45%, mild to mod LVH, abnormal diastolic function. Currently stable cardiac status. Pt may discharge home from cardiology standpoint. Will plan for stress test as OP. Recommend pt follow up in our office with Dr. Caballero within 1-2 weeks of hospital discharge ([phone]). Pt verbalizes understanding. The patient has been seen in conjunction with Dr. Mckeon who agrees with the assessment and plan of care. - Patient Problems (1) Vertigo Current Visit: Yes Status: Acute (2) Headache Current Visit: Yes Status: Acute (3) Chest pain Current Visit: Yes Status: Resolved (4) Accelerated hypertension Current Visit: Yes Status: Acute (5) Hyperlipemia Current Visit: Yes Status: Chronic Subjective Date of service: 12/09/18 Principal diagnosis: vertigo Interval history: pt resting in bed, no current cardiac complaints. still with c/o vertigo, headache has improved. Objective Last Vital Signs Temp 97.8 F 12/08/18 17:36 Pulse 80 12/09/18 10:18 Resp 20 12/08/18 22:29 BP 150/88 12/09/18 10:18 Pulse Ox 98 12/08/18 17:36 - Physical Examination General: No Apparent Distress HEENT: Positive: PERRL, Normocephaly, Mucus Membranes Moist Neck: Positive: neck supple, trachea midline Cardiac: Positive: Reg Rate and Rhythm, S1/S2 Lungs: Positive: Decreased Breath Sounds Neuro: Positive: Grossly Intact Abdomen: Positive: Soft. Negative: Tender Skin: Negative: Rash Musculoskeletal: No Pain Extremities: Absent: edema - Labs and Meds Comprehensive Metabolic Panel 12/08/18 Range/Units 09:57 Sodium 143 (137-145) mmol/L Potassium 3.8 (3.6-5.0) mmol/L Chloride 105.8 (98-107) mmol/L Carbon Dioxide 19 L (22-30) mmol/L BUN 19 H (7-17) mg/dL Creatinine 0.8 (0.7-1.2) mg/dL Glucose 171 H (65-100) mg/dL Calcium 9.5 (8.4-10.2) mg/dL - Imaging and Cardiology EKG: report reviewed, image reviewed Echo: pending - EKG Sinus rhythms and dysrhythmias: sinus rhythm Chamber hypertrophy or enlargement: left ventricular hypertro
[2018-12-09 12:40] VITALS: BP 143/89
== END 2018-12-09 16:25 | disposition home or self-care (01) | DRG 103 ==
LOC: ED 23:59 → 3A 12-06 06:55 → OBSVTOIN 12-07 10:28
PROVIDERS: ADMIT Internal Medicine; ATTEND Internal Medicine
DX: G43.909 Migraine, unspecified, not intractable, without status migrainosus (principal); K21.9 Gastro-esophageal reflux disease without esophagitis; H81.10 Benign paroxysmal vertigo, unspecified ear; E87.6 Hypokalemia; I11.0 Hypertensive heart disease with heart failure; I50.22 Chronic systolic (congestive) heart failure; E66.9 Obesity, unspecified; E78.5 Hyperlipidemia, unspecified; Z82.49 Family history of ischemic heart disease and other diseases of the circulatory system; Z68.32 Body mass index [BMI] 32.0-32.9, adult; Z83.3 Family history of diabetes mellitus; Z71.3 Dietary counseling and surveillance
CPT/HCPCS: 36415; 70450; 70544; 70546; 70547; 70549; 70553; 71045; 71046; 71275; 80048; 80307; 84443; 84484; 85025; 85379; 93005; 93010; 93306; 99284; 99285; G0378; A9270-GY; A9577; J0360; J1100; J1650; J3475; Q9967

== ENCOUNTER 2019-04-11 09:44 | Outpatient (CLI) | payer OTHER ==
--- NOTE | 2019-04-12 09:56 | Mammography Report ---
DIGITAL SCREENING MAMMOGRAM WITH CAD, 04/11/2019 INDICATION: Routine screening mammography. TECHNIQUE: Digital bilateral 2D mammography was obtained in the craniocaudal and mediolateral obliq ue projections. This examination was interpreted with the benefit of Computer-Aided Detection analysi s. COMPARISON: None available. FINDINGS: Breast Density: The breasts are heterogeneously dense, which may obscure small masses. There is no evidence of dominant mass, suspicious calcifications or architectural distortion in eithe r breast. IMPRESSION: No mammographic evidence of malignancy. Follow up recommendation: Routine yearly BI-RADS Category 1: Negative. A "normal" or negative report should not discourage follow up or biopsy of a clinically significant f inding. A written summary of these findings will be mailed to the patient. The patient will be entered into a mammography reporting system which will generate a reminder letter for the patient's next appointmen t at the appropriate interval. [employer] recommends yearly mammograms starting at age 40 and continuing as l earnest as a woman is in good health. Breast MRI is recommended for women with an approximate 20-25% or greater lifetime risk of breast cancer, including women with a strong family history of breast or ova matthew cancer or who have been treated for Hodgkin's disease. Signer Name: Iam Harrison MD Signed: 04/12/2019 9:52 AM Workstation Name: [id number]
== END 2019-04-11 09:45 | disposition home or self-care (01) ==
LOC: SPVWC 09:44
PROVIDERS: ATTEND Hospitalist
DX: Z12.31 Encounter for screening mammogram for malignant neoplasm of breast (principal); E78.5 Hyperlipidemia, unspecified; I10 Essential (primary) hypertension
CPT/HCPCS: 77067